=== PATIENT | male | born 1955 | race Caucasian/White ===

== ENCOUNTER 2018-06-28 07:40 | Day surgery (SDC) | payer MEDICARE, SELFPAY ==
--- NOTE | 2018-06-28 09:00 | EGD_PTH ---
PATIENT: SARAH VALERIO LOC: EN U#:[id number] AGE/SX: 63/M ROOM: RE06/28/[address]: Dr. Roman Cai MD : 1955 BED: DIS: 06/28/2018 SPEC #: [id number] RECD: 06/28/18 13:30 STATUS: KATYA SOHAIL #: [id number] BRANDIE: 06/28/18 09:[address]: Roman Cai DEPT: SURGICAL PATHOLOGY RECD BY: Sharon You ENTERED: 06/28/18 14:14 SP TYPE: EGD BIOPSY OT DR: Dr. Camille Godinez MD Tissues: Esophagus, NOS Procedures: Special Stain Group II Surgery Specimen Level IV Alcian Blue/PAS (control) HEADER OPERATION: EGD ([facility]) PRE-OP DIAGNOSIS: Dysphagia - possible dilatation TISSUE SUBMITTED: Distal esophagus biopsy MICROSCOPIC DIAGNOSIS Distal esophagus, biopsy: Fragments of gastroesophageal mucosa with changes consistent with eosinophilic esophagitis. See comment. Focal chronic inflammation. Intestinal metaplasia (goblet cell metaplasia) is not identified. HARDEEP:wally 06/29/18 COMMENT Increased number of eosinophils (>20 per high power field) are noted consistent with eosinophilic esophagitis. Alcian blue/PAS stain with matched control is used in the evaluation of the specimen. MICROSCOPIC DESCRIPTION Slides are reviewed. GROSS DESCRIPTION Received in fixative is one container labeled with the patient's name and designated distal esophagus biopsy. The specimen consists of multiple irregular fragments of light garzon soft tissue that in aggregate measure 1.2 x 0.2 x 0.1 cm. The specimen is totally submitted in one cassette. / HARDEEP:wally 06/28/18 TC:3 CPT: 58324, 06240
--- NOTE | 2018-06-28 09:06 | PCM.OPRPT ---
Problem List (1) Dysphagia, unspecified Status: Acute Qualifiers: Dysphagia type: unspecified Qualified Code(s): R13.10 - Dysphagia, unspecified Report of Operation Date of Procedure: 06/28/18 Pre-Operative Diagnosis: R13.10 dysphasia Post-Operative Diagnosis: Same Surgery/Procedure Performed:: [id number] esophagogastroduodenoscopy with biopsy Type of Anesthesia:: MAC Description of Procedure: Patient was brought into the endoscopy suite. Placed in the supine position. Back of her throat was sprayed with Cetacaine spray. Bite-block was placed. He was placed in the left lateral decubitus position. Graded anesthesia was given Olympus scope was inserted in the back of the oropharynx and directed down through the esophagus into the stomach and into the duodenum without difficulty operative findings: 1. Duodenum: Normal appearance no mass lesions. 2. Stomach: S normal appearance no mass lesions no ulcerations. No hiatal hernia was identified. No polyps were identified in the stomach. 3. Esophagus: Significant esophagitis was identified in the distal esophagus. Numerous biopsies of this were obtained to determine if there was dysplastic cells. There was no signs of any narrowing of the the scope easily traversed through the Z line and into the stomach and dilatation I did not feel was appropriate at this time. I believe the patient would probably benefit from repeating an upper endoscopy in 3 years depending on the path report that is obtained from the biopsies. In addition I think the patient would benefit from obtaining esophageal manometry studies to see if his dysphagia could be functional to the esophagus as opposed to anatomical. - Admit VTE Documentation VTE Present on Admission: No VTE Mechan Device Prophylaxis: None VTE Pharm Prophylaxis ordered?: No Reason prophylaxis not ordered:: Treatment Not Indicated
[2018-06-28 09:10] VITALS: BP 123/82; BP 98/72; PULSE 69; RESP 16; TEMP 36.3; O2SAT 95
[2018-06-28 09:15] VITALS: BP 107/79; BP 123/82; PULSE 64; RESP 18; O2SAT 97
[2018-06-28 09:20] VITALS: BP 104/79; BP 123/82; PULSE 65; RESP 18; O2SAT 97
[2018-06-28 09:25] VITALS: BP 110/79; BP 123/82; PULSE 59; RESP 18; TEMP 36.3; O2SAT 97
[2018-06-28 10:30] VITALS: BP 123/82
== END 2018-06-28 10:31 | disposition home or self-care (01) ==
LOC: EN 07:41 → AC 07:43
PROVIDERS: Family Provider Internal Medicine; PCP Internal Medicine; Visit Provider Surgery
PROC: 0DJ08ZZ Inspection of Upper Intestinal Tract, Via Natural or Artificial Opening Endoscopic (ICD-10-PCS; CPT 43235; principal; 2018-06-28 08:55)
DX: K21.0 Gastro-esophageal reflux disease with esophagitis (principal); R13.10 Dysphagia, unspecified; Z87.891 Personal history of nicotine dependence
CPT/HCPCS: 43239; 88305; 88313; J7120

== ENCOUNTER 2018-07-06 07:33 | Day surgery (SDC) | payer MEDICARE, SELFPAY ==
[2018-07-06 08:35] VITALS: BP 128/86; PULSE 65; RESP 16; TEMP 36.2; O2SAT 100
--- NOTE | 2018-07-06 08:43 | SUR.OPER ---
Lidocaine jelly applied to inside of L. nare. Nasal intubation attempted, however, probe would not advance. Small amount of bleeding to L. nare. Lidocaine then applied to inside of R. nare. Nasal intubation successful and probe placed. Manometry completed. Pt. tolerated well. Pt. ambulated out to waiting room to meet family. Escorted out by RN.
== END 2018-07-06 08:45 | disposition home or self-care (01) ==
LOC: EN 07:33
PROVIDERS: Family Provider Internal Medicine; PCP Internal Medicine; Visit Provider Surgery
PROC: F00ZJWZ Instrumental Swallowing and Oral Function Assessment using Swallowing Equipment (ICD-10-PCS; CPT 43235; principal; 2018-07-06 07:25)
DX: K22.4 Dyskinesia of esophagus (principal)
CPT/HCPCS: 91010

== ENCOUNTER → 2020-11-11 08:51 | Outpatient (CLI) | payer MEDICARE, OTHER, SELFPAY ==
--- NOTE | 2020-11-11 08:57 | BD_ITS ---
STUDY: DUAL ENERGY X-RAY ABSORPTIOMETRY / DXA REASON FOR EXAM: Male, 65 years old. OSTEOPENIA SEEN ON LUMBAR XRAY -- TAKES CALCIUM -- DOES MODERATE AMOUNT OF EXERCISE -- DONAVAN OF 0.5-0.75 INCH TECHNIQUE: Bone Mineral Density (BMD) measurements of lumbar spine and bilateral hips were obtained. COMPARISON: None. FINDINGS: Lumbar Spine (L1-L4): g/cm2 (0.898) / T-score (-2.7) / Z-score (-2.2) Findings are suggestive of osteoporosis with a high fracture risk. Left Femur Total: g/cm2 (0.970) / T-score (-0.9) / Z-score (-0.3) Left Femoral Neck: g/cm2 (0.785) / T-score (-2.2) / Z-score (-1.0) Right Femur Total: g/cm2 (0.897) / T-score (-1.4) / Z-score (-0.8) Right Femoral Neck: g/cm2 (0.688) / T-score (-2.9) / Z-score (-1.8) BD/Dexa Bone Density Study IMPRESSION: The patient is considered osteoporotic as outlined below according to World [employer] Organization (WHO) criteria with a high fracture risk. Reference Information: The T-score is the number of standard deviations above or below the standard which is normal for young adults at their peak bone mineral density. The World Health Organization (WHO) interprets the T-scores as follows: Above -1 Normal bone density Between -1 and -2.5 Osteopenia Equal to / or below -2.5 Osteoporosis As a practical clinical guideline, osteopenia may be graded as follows: Mild -1 through -1.5 Moderate -1.6 through -2.0 Severe -2.1 through -2.4 The Z-score is the number of standard deviations above or below age-matched controls. A Z-score of less than -1.5 would be considered abnormal. References: 1. NIH Osteoporosis and Related Bone Diseases www osteo.org 2. International Society for Clinical Densitometry www iscd.org 3. National Osteoporosis Foundation www nof.org Electronically Signed: Darrian Cruz, at 15:17 EST , Service support ,
== END ==
PROVIDERS: PCP Internal Medicine; Referring Provider Internal Medicine; Visit Provider Internal Medicine
DX: M85.88 Other specified disorders of bone density and structure, other site (principal); M81.0 Age-related osteoporosis without current pathological fracture
CPT/HCPCS: 77080

== ENCOUNTER 2025-06-12 21:43 | Outpatient (CLI) | payer MEDICARE, OTHER, SELFPAY ==
--- NOTE | 2025-06-12 11:30 | MASS_PTH ---
PATIENT: SARAH VALERIO LOC: [facility] U#:[id number] AGE/SX: 70/M ROOM: RE06/12/[address]: Dr. Ambrosio Alvarez DO : 1955 BED: DIS: 06/12/2025 SPEC #: [id number] RECD: 06/12/25 21:51 STATUS: KATYA REZuly #: [id number] BRANDIE: 06/12/25 11:[address]: Ambrosio Alvarez DEPT: SURGICAL PATHOLOGY RECD BY: Melinda Kelly ENTERED: 06/13/25 10:05 SP TYPE: Mass OTHR DR: Dr. Camille Godinez MD Tissues: Hand, NOS Procedures: Surgery Specimen Level IV HEADER OPERATION: Left Hand Mass Excisional Biopsy PRE-OP DIAGNOSIS: Left Hand Palmar Mass TISSUE SUBMITTED: Left Hand Lyubov Mass MICROSCOPIC DIAGNOSIS A. Hand, left, palmar mass, excision: - Atypical vascular proliferation - see note. - Further assessment is pending formal consultation with Dr Mil Malik at [facility] (bone and soft tissue division). A separate report will follow. Note: CD31, ERG, and SMA are positive, highlighting the vascular nature of the lesion. Desmin and JASON are negative. MICROSCOPIC DESCRIPTION Slides are reviewed. All controls show appropriate reactivity. All immunohistochemistry, in situ hybridization, and histochemical tests were developed by and are performed at the [facility], [address] [place] [address]. All Immunofluorescent (IF)?tests were developed by and are performed at the [facility], [address] [place] [address] [facility]. All tests reported here, except those addressing HER2 overexpression as a predictive marker, have not been cleared by or approved by the US Food and Drug Administration (FDA). The laboratory is regulated under CLIA as qualified to perform high-complexity testing. The tests are used for clinical purposes. They should not be regarded as investigational or for research. GROSS DESCRIPTION A. Received in formalin labeled with the patient's name and date of . Designated as left palm mass is a 1.0 x 0.6 x 0.6 cm intact nodule with minimal attached soft tissue. The specimen is inked black and bisected revealing garzon to white, fibrotic and somewhat edematous cut surfaces. Entirely submitted in 1 cassette. VT 06/13/2025 [facility]: [id number] ADDENDUM ADDENDUM ADDEND 08/14/2025 15:05 ADDENDUM 08/14/2025 15:05 ADDENDUM 08/14/2025 15:05 ADDENDUM 08/14/2025 15:05 ADDENDUM 08/14/2025 15:05 The case was discussed with Dr Alvarez by Dr Nasra Malik ([facility]) and the decision was made to not do a formal consultation. A separate report from [facility] will NOT follow.
== END 2025-06-12 23:59 | disposition home or self-care (01) ==
PROVIDERS: PCP Internal Medicine; Referring Provider Student in an Organized Health Care Education/Training Program; Visit Provider Student in an Organized Health Care Education/Training Program
DX: R22.32 Localized swelling, mass and lump, left upper limb (principal)
CPT/HCPCS: 88305